=== PATIENT | male | born 2000 | race African-American/Black ===

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

== ENCOUNTER 2020-03-25 18:31 | Emergency (ER) | payer OTHER ==
[~2020-03-25 18:31] MED LIST: BACLOFEN 10MG T10 MG PO; IBUPROFEN800 MG PO; NAPROXEN500 MG PO; PERCOCET 5-3251 EACH PO
[2020-03-25 19:18] LABS: BASOPHIL 0.4 % (0-2); EOSINOPHIL 1.3 % (0-5); HCT 42.5 % (42.0-52.0); HGB 13.9 g/dl (13.2-18.0); LYMPHOCYTE 23.7 % (15-48); MCH 30.2 pg (25.0-31.0); MCHC 32.7 g/dL (32.0-36.0); MCV 92.2 fL (78.0-100.0); MONOCYTE 8.7 % (0-12); MPV 11.7 fL (6.0-9.5); NEUTROPHIL 65.7 % (41-80); NRBC 0; PLT 164 K/uL (150-400); RBC 4.61 M/uL (4.70-6.00); RDW 13.2 % (11.5-14.0); WBC 10.6 K/uL (4.0-10.5)
[2020-03-25 19:30] LABS: ALBUMIN 4.6 g/dL (3.4-5.0); BILIRUBIN - TOTAL 0.5 mg/dL (0.2-1.0); BUN/CREAT RATIO (CALC) 9.5 RATIO; CREATININE 1.26 mg/dL (0.67-1.17); GLOBULIN (CALCULATION) 3.6 g/dL; POTASSIUM 3.4 mmol/L (3.5-5.1); TOTAL PROTEIN 8.2 g/dL (6.4-8.2)
[2020-03-25 20:06] LABS: BILIRUBIN NEGATIVE (NEGATIVE); BLOOD NEGATIVE Ery/uL (NEGATIVE); CLARITY CLOUDY (CLEAR); COLOR YELLOW (YELLOW); GLUCOSE (U) NORMAL (NORMAL); LEUKOCYTES NEGATIVE Leu/uL (NEGATIVE); NITRITE NEGATIVE (NEGATIVE); PROTEIN TRACE (LOW) mg/dL (NEGATIVE); SPECIFIC GRAVITY 1.025 (1.001-1.030); UROBILINOGEN 0.2 mg/dL (0.2-1.0); pH 7.5 (5.0-9.0)
[2020-03-25 20:08] LABS: AMORPHOUS URATES CRYSTALS LARGE; BACTERIA TRACE
[2020-03-25] MEDS ORDERED: BENTYL10 MG PO (20:26)
== END 2020-03-25 20:44 | disposition home or self-care (01) ==
LOC: FER 18:31
PROVIDERS: Emergency Medicine
DX: K52.9 Noninfective gastroenteritis and colitis, unspecified (principal); E87.6 Hypokalemia; R79.89 Other specified abnormal findings of blood chemistry
CPT/HCPCS: 36415; 80053; 81001; 83690; 85025; 87339; 99284

== ENCOUNTER 2020-09-14 12:18 | Emergency (ER) | payer OTHER ==
[~2020-09-14 12:18] MED LIST changes: +BENTYL10 MG PO
[2020-09-14 12:26] LABS: BASOPHIL 0.4 % (0-2); EOSINOPHIL 1.6 % (0-5); HCT 38.1 % (42.0-52.0); HGB 12.7 g/dl (13.2-18.0); LYMPHOCYTE 25.4 % (15-48); MCH 30.2 pg (25.0-31.0); MCHC 33.3 g/dL (32.0-36.0); MCV 90.7 fL (78.0-100.0); MONOCYTE 6.5 % (0-12); MPV 10.9 fL (6.0-9.5); NEUTROPHIL 65.8 % (41-80); NRBC 0; PLT 170 K/uL (150-400); RDW 12.7 % (11.5-14.0); WBC 7.5 K/uL (4.0-10.5)
[2020-09-14 12:37] LABS: ALBUMIN 4.2 g/dL (3.4-5.0); BILIRUBIN - TOTAL 0.3 mg/dL (0.2-1.0); GLOBULIN (CALCULATION) 3.3 g/dL; POTASSIUM 3.6 mmol/L (3.5-5.1); TOTAL PROTEIN 7.5 g/dL (6.4-8.2)
[2020-09-14 12:41] LABS: BILIRUBIN NEGATIVE (NEGATIVE); BLOOD NEGATIVE Ery/uL (NEGATIVE); CLARITY CLEAR (CLEAR); COLOR YELLOW (YELLOW); GLUCOSE (U) NORMAL (NORMAL); LEUKOCYTES NEGATIVE Leu/uL (NEGATIVE); NITRITE NEGATIVE (NEGATIVE); PROTEIN NEGATIVE (NEGATIVE); SPECIFIC GRAVITY <=1.005 (1.001-1.030); UROBILINOGEN 0.2 mg/dL (0.2-1.0); pH 6.5 (5.0-9.0)
== END 2020-09-14 12:45 | disposition left against medical advice (07) ==
LOC: FER 12:18
PROVIDERS: Emergency Medicine
DX: Z53.21 Procedure and treatment not carried out due to patient leaving prior to being seen by health care provider (principal)
CPT/HCPCS: 36415; 80053; 81003; 82150; 83690; 85025